=== PATIENT | female | born 1960 | race Caucasian/White ===

== ENCOUNTER → 2020-04-02 | Day surgery (SDC) | payer OTHER ==
[~2020-04-02] MED LIST: HYDROCODON-ACE1 EAC7 PO; METFORMIN HCL500 M1 PO; QUINAPRIL-HCTZ1 EAC1 PO; ROSUVASTATIN CA20 MG PO; SYMBICORT160 MCG/4. INH; VITAMIN D21250 MC1 PO
[2020-04-02 10:49] LABS: HEMATOCRIT 41.1 % (37.0-47.0); HEMOGLOBIN 13.6 gm/dL (12.0-15.0); MCH 29.5 pg (26.0-34.0); MCHC 33.1 g/dL (28.0-37.0); MPV 8.1 fl. (7.2-11.1); RBC 4.61 mil/uL (4.20-5.00); RDW-CV 13.7 % (10.5-14.5)
[2020-04-02 10:57] LABS: CALCIUM 9.1 mg/dL (8.5-10.1); CREATININE 0.8 mg/dL (0.6-1.3)
--- NOTE | 2020-04-03 10:00 | EKG ---
[place] [address] ELECTROCARDIOGRAM REPORT Name: BERTA NEIL Room: [facility]#: [id number] Admission: 04/02/20 Attend Phys: Jairo Puente, Discharge: Date of : 60 Date of Service: 04/02/20 [facility] Report #: [id number] THIS REPORT FOR: //name// [facility] Test Date: 2020-04-02 Test Time: 10:37:47 Pat Name: BERTA NEIL Department: Room: Gender: Associate Financial Advisor: ALON : 1960 Requested By: Jairo Puente Order Number: [id number] Reading MD: Shen Caldwell Measurements Intervals [place] Rate: 80 P: 51 [place]: 152 QRS: 17 QRSD: 92 T: 31 QT: 385 QTc: 445 Interpretive Statements Sinus rhythm No previous ECG available for comparison Electronically Signed On 04-03-2020 10:00:31 MANAGER GRANT by Shen Caldwell [email or web address] <ELECTRONICALLY SIGNED> By: Shen Caldwell MD, [facility] 04/03/20 1000 [facility] Shen Caldwell MD, FACC /EPI
--- NOTE | 2020-04-04 12:14 | OP ---
[address] [address] OPERATIVE REPORT Name: BERTA NEIL Room: [facility]#: [id number] Admission: 04/02/20 Attend Phys: Jairo Puente II Discharge: Date of : 60 Report #: [id number] THIS REPORT FOR: cc: Lisa Briceno NP, Elizabeth NP ~ Jairo Puente II, DO DATE OF SERVICE: 04/02/2020 PREOPERATIVE DIAGNOSIS: Right lateral malleolus fracture with syndesmosis disruption. POSTOPERATIVE DIAGNOSES: Right lateral malleolus fracture with syndesmosis disruption. PROCEDURES: 1. Open reduction and internal fixation of right lateral malleolus fracture. 2. Syndesmotic repair. SURGEON: Jairo Puente II, DO. SERVICE MEMBER: CONOR Marquez. ANESTHESIA: Per operative record. ESTIMATED BLOOD LOSS: Minimal. ANTIBIOTICS: Per operative record. DRAINS: None. COMPLICATIONS: None. CONDITION OF THE PATIENT: Stable to recovery room. DESCRIPTION OF PROCEDURE: The patient was taken to the operative suite, placed supine on the operating table and given appropriate anesthesia. The patient had a well-padded tourniquet applied to affected lower extremity, which was inflated to 300 mmHg after Esmarch exsanguination for duration of procedure. Leg was sterilely prepped and draped. Surgery began by an incision laterally over the fibula. This was carried down to the subcutaneous tissues. Fibula fracture was visualized with fluoroscopic evaluation and reduced in near anatomic fashion. This was held with a lobster claw forceps and the plate was applied slightly posteriorly in order to attach to the more posterior fragment. It was then secured to the fibula with appropriate locking and nonlocking screws. This was visualized on both AP and lateral views to be in anatomic [place] [address] OPERATIVE REPORT Name: BERTA NEIL Room: [facility]#: [id number] Admission: 04/02/20 Attend Phys: Jairo Puente II Discharge: Date of : 60 Report #: [id number] was then performed to assess the syndesmosis and it was shown to have tear with widening of the medial joint line. The Arthrex TightRope device was then drilled up in through the fibula and tibia. The TightRope was then deployed on the medial aspect and sutured and cinched into place with the foot in neutral and stabilized. A cotton test was once again performed and there was no evidence of widening of the medial joint space. The wound was then copiously irrigated. It was closed with subcuticular Vicryl stitch and a running Monocryl stitch. Sterile dressing, splint and Dermabond were applied. The patient transported to recovery room in stable condition. Counts were correct throughout the procedure. <ELECTRONICALLY SIGNED> By: Jairo Puente II, DO 04/04/20 1214 50 [id number] Puente II, DO /nt
== END | disposition home or self-care (01) ==
LOC: M.SUR 09:16
PROVIDERS: ATTEND Orthopaedic Surgery
DX: S82.61XA Displaced fracture of lateral malleolus of right fibula, initial encounter for closed fracture (principal); S93.431A Sprain of tibiofibular ligament of right ankle, initial encounter; X58.XXXA Exposure to other specified factors, initial encounter; Y93.89 Activity, other specified; Y92.89 Other specified places as the place of occurrence of the external cause; Y99.8 Other external cause status